=== PATIENT | male | born 1950 | race Caucasian/White ===

== ENCOUNTER 2023-03-14 19:32 | Emergency (ER) | payer OTHER, MEDICARE ==
[~2023-03-14] VITALS: Ht 172.7 cm; Wt 76.0 kg
[~2023-03-14 19:32] MED LIST: PANT-47 PO
[2023-03-14 19:48] VITALS: BP 149/81; PULSE 76; RESP 18; TEMP 98; O2SAT 93
[2023-03-14] MEDS ORDERED: ketorolac trometh inj. 60 MG/2 ML VIAL IM ONE (21:20)
[2023-03-14] MEDS ORDERED: ACYC-129 PO (21:30)
== END 2023-03-14 21:47 | disposition home or self-care (01) ==
LOC: ER 19:34
DX: B02.9 Zoster without complications (principal); I11.0 Hypertensive heart disease with heart failure; E78.00 Pure hypercholesterolemia, unspecified; E11.9 Type 2 diabetes mellitus without complications; Z88.6 Allergy status to analgesic agent; Z79.899 Other long term (current) drug therapy
CPT/HCPCS: 96372; 99283; J1885